=== PATIENT | female | born 2000 | race Caucasian/White ===

== ENCOUNTER 2019-01-20 15:04 | Emergency (ER) | payer OTHER ==
[~2019-01-20] VITALS: Ht 154.9 cm; Wt 62.7 kg
[~2019-01-20 15:04] MED LIST: ACET100D30; AMOX250S7
[2019-01-20 17:56] VITALS: BP 116/67
== END 2019-01-20 18:43 | disposition home or self-care (01) ==
LOC: EMS 17:38
DX: S93.492A Sprain of other ligament of left ankle, initial encounter (principal); X50.1XXA Overexertion from prolonged static or awkward postures, initial encounter; Y93.01 Activity, walking, marching and hiking; Y92.89 Other specified places as the place of occurrence of the external cause; Y99.8 Other external cause status
CPT/HCPCS: 29515